=== PATIENT | male | born 1975 ===

== ENCOUNTER 2017-01-22 20:41 | Emergency (ER) | payer BC ==
[2017-01-22 21:02] VITALS: BP 121/65; RESP 16; TEMP 97.7
[2017-01-22] MEDS ORDERED: DiphenhydrAMINE 50 mg/ml Inj ONE (21:11)
[2017-01-22] MEDS: DiphenhydrAMINE 50 mg/ml Inj IV STA (21:27)
[2017-01-22] MEDS: Sodium Chloride 0.9% 1,000 ML IV STA (21:28)
--- NOTE | 2017-01-22 21:39 | ED PDOC ---
HPI: Allergic Reaction Time Seen by Provider: 01/22/17 21:16 Chief Complaint (Nursing): Allergic Reaction Chief Complaint (Provider): Allergic Reaction History Per: Patient History/Exam Limitations: no limitations Onset/Duration Of Symptoms: Mins (30 minutes prior to arrival) Current Symptoms Are (Timing): Still Present Possible Cause: Food (10 minutes after ingesting honey roasted almonds) Associated Symptoms: Skin Rash, Swelling, Trouble Swallowing, Itching, Redness Home/EMS Treatment: None Severity: Moderate Additional Complaint(s): 41 year old male with no pertinent medical history presents to the ED with complaints of a possible allergic reaction that started 30 minutes prior to arrival. Patient reports that he started showing symptoms of difficulty swallowing, itching, and throat tightness 10 minutes after eating honey roasted almonds. He denies having any previous allergic reactions. He denies having nausea, vomiting, diarrhea, cough, fevers, or any known allergies. PMD: patient does not have a PMD Past Medical History Reviewed: Historical Data, Nursing Documentation, Vital Signs Vital Signs: Last Vital Signs Temp 97.7 F 01/22/17 20:52 Pulse 70 01/22/17 20:52 Resp 16 01/22/17 20:52 BP 121/65 01/22/17 20:52 Pulse Ox 90 L 01/22/17 21:32 - Medical History PMH: No Chronic Diseases - Surgical History Surgical History: No Surg Hx - Family History Family History: States: No Known Family Hx - Social History Alcohol: None Drugs: Denies - Home Medications Home Medications: Ambulatory Orders Medication Instructions Recorded Cetirizine HCl [Zyrtec] 10 mg PO QAM #10 capsule 01/22/17 Famotidine [Pepcid] 20 mg PO Q12 #14 tab 01/22/17 Methylprednisolone [Medrol Dosepak] 4 mg PO ASDIR #1 pkg 01/22/17 - Allergies Allergies/Adverse Reactions: Allergies Allergy/AdvReac Type Severity Reaction Status Date / Time No Known Allergies Allergy Verified 01/22/17 21:02 Review of Systems ROS Statement: Except As Marked, All Systems Reviewed And Found Negative Constitutional: Negative for: Fever ENT: Positive for: Throat Swelling Respiratory: Negative for: Cough Gastrointestinal: Negative for: Nausea, Vomiting, Diarrhea Skin: Positive for: Rash (itchiness) Physical Exam - Reviewed Nursing Documentation Reviewed: Yes Vital Signs Reviewed: Yes - Physical Exam Appears: Positive for: Well, Non-toxic, No Acute Distress Head Exam: Positive for: ATRAUMATIC, NORMOCEPHALIC Skin: Positive for: Warm, Dry, Rash (diffuse urticarial rash) Cardiovascular/Chest: Positive for: Regular Rate, Rhythm Respiratory: Positive for: Normal Breath Sounds. Negative for: Respiratory Distress Extremity: Positive for: Swelling (mild edema to extremities and erythema) Neurologic/Psych: Positive for: Alert, Oriented (3x) - ECG O2 Sat by Pulse Oximetry: 90 (RA) Pulse Ox Interpretation: Abnormal - Critical Care Total Time (In Min): 30 Disposition - Clinical Impression Clinical Impression: Acute allergic reaction - Patient ED Disposition Is Patient to be Admitted: No Counseled Patient/Family Regarding: Studies Performed, Diagnosis, Need For Followup, Rx Given - Disposition Referrals: Moreno Crystal MD [Primary Care Provider] - Disposition: Routine/Home Disposition Time: 23:10 Condition: STABLE Prescriptions: Cetirizine HCl [Zyrtec] 10 mg PO QAM #10 capsule Famotidine [Pepcid] 20 mg PO Q12 #14 tab Methylprednisolone [Medrol Dosepak] 4 mg PO ASDIR #1 pkg Instructions: General Allergic Reaction (ED) Forms: [employer] (Romanian) Print Language: TELUGU Medical Decision Making Medical Decision Makin:16 Initial impression: 41 year old male with an acute allergic reaction insetting of almond consumption. Initial plan: * benadryl 50mg IV * IV NS 1,000ml IV 1,000mls/hr * pepcid 20mg IVP x2 * solumedrol 125mg IVP * reevaluation 2310: Patient reports complete relief in all symptoms and is stable for d/c. 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 Provider Scribe Attestation: All medical record entries made by the Scribe were at my direction and personally dictated by me. I have reviewed the chart and agree that the record accurately reflects my personal performance of the history, physical exam, medical decision making, and the department course for this patient. I have also personally directed, reviewed, and agree with the discharge instructions and disposition.
[2017-01-22] MEDS ORDERED: Albuterol-Ipratrop 3 mg / 0.5 (3 ml) UD ONE (22:43)
[2017-01-22] MEDS: Albuterol-Ipratrop 3 mg / 0.5 (3 ml) UD INH STA (22:50)
[2017-01-22 23:08] VITALS: PULSE 65
[2017-01-22 23:12] VITALS: O2SAT 90
== END 2017-01-22 23:22 | disposition home or self-care (01) ==
LOC: H.ER 20:41
DX: T78.40XA Allergy, unspecified, initial encounter (principal)
CPT/HCPCS: 94150; 94640; 96361; 96374; 96375; 96376; 99285; J1200; J2930; J7040

== ENCOUNTER 2018-04-24 13:00 | Emergency (ER) | payer BC ==
[2018-04-24 13:09] VITALS: O2SAT 99
--- NOTE | 2018-04-24 13:35 | ED PDOC ---
HPI: Skin/Bite Injury Time Seen by Provider: 04/24/18 13:11 Chief Complaint (Nursing): Abnormal Skin Integrity Chief Complaint (Provider): rash History Per: Patient Additional Complaint(s): 42-year-old male presents with itchy rash to entire body that started the day after he went hiking last week. Patient has been applying Benadryl cream which has not helped. He also took Ebonie but still has itchiness and redness. He denies fever or chills. Denies any discharge. PMD: none Past Medical History Reviewed: Historical Data, Nursing Documentation, Vital Signs Vital Signs: Last Vital Signs Temp 98.0 F 04/24/18 13:07 Pulse 76 04/24/18 13:07 Resp 18 04/24/18 13:07 BP 122/71 04/24/18 13:07 Pulse Ox 99 04/24/18 13:07 - Medical History PMH: No Chronic Diseases - Surgical History Surgical History: No Surg Hx - Family History Family History: States: No Known Family Hx - Living Arrangements Living Arrangements: With Family - Social History Current smoker - smoking cessation education provided: No Alcohol: None Drugs: Denies - Home Medications Home Medications: Ambulatory Orders Medication Instructions Recorded Cetirizine HCl [Zyrtec] 10 mg PO QAM #10 capsule 01/22/17 Famotidine [Pepcid] 20 mg PO Q12 #14 tab 01/22/17 Methylprednisolone [Medrol Dosepak] 4 mg PO ASDIR #1 pkg 01/22/17 Loratadine [Claritin] 10 mg PO DAILY #30 tab 04/24/18 predniSONE [predniSONE Tab] 10 mg PO ASDIR #43 tab 04/24/18 - Allergies Allergies/Adverse Reactions: Allergies Allergy/AdvReac Type Severity Reaction Status Date / Time No Known Allergies Allergy Verified 04/24/18 13:07 Review of Systems ROS Statement: Except As Marked, All Systems Reviewed And Found Negative Constitutional: Negative for: Fever Skin: Positive for: Rash Physical Exam - Reviewed Nursing Documentation Reviewed: Yes Vital Signs Reviewed: Yes - Physical Exam Appears: Positive for: Well, Non-toxic, No Acute Distress Skin: Positive for: Normal Color, Rash (Maculopapular and Urticarial lesions noted to upper and lower extremities in linear distributions.) Eye Exam: Positive for: Normal appearance Cardiovascular/Chest: Positive for: Regular Rate, Rhythm Respiratory: Positive for: Normal Breath Sounds. Negative for: Wheezing, Respiratory Distress Extremity: Positive for: Normal ROM. Negative for: Pedal Edema Neurologic/Psych: Positive for: Alert, Oriented - ECG O2 Sat by Pulse Oximetry: 99 Pulse Ox Interpretation: Normal Medical Decision Making Medical Decision Makin42 y/o with poison ella dermatitis Plan: IM solumedrol Patient given prescriptions for Claritin and prednisone taper course. He was advised to keep skin clean and dry. Patient referred to clinic for follow-up. Disposition - Clinical Impression Clinical Impression: Poison ella dermatitis - Patient ED Disposition Is Patient to be Admitted: No Counseled Patient/Family Regarding: Diagnosis, Need For Followup, Rx Given - Disposition Referrals: [facility] [Outside] Disposition: Routine/Home Disposition Time: 13:33 Condition: STABLE Additional Instructions: Take rx meds as directed. Do not apply any topical creams. Wash skin daily with soap and water. Follow up with clinic in 2-3 days. Prescriptions: Loratadine [Claritin] 10 mg PO DAILY #30 tab predniSONE [predniSONE Tab] 10 mg PO ASDIR #43 tab Instructions: Poison Ella
[2018-04-24 13:47] VITALS: BP 120/46; PULSE 66; RESP 16; TEMP 99.1
== END 2018-04-24 14:05 | disposition home or self-care (01) ==
LOC: H.ER 13:00
DX: L23.7 Allergic contact dermatitis due to plants, except food (principal)
CPT/HCPCS: 96372; 99282; J2930